=== PATIENT | female | born 1945 | race Caucasian/White ===

== ENCOUNTER → 2021-05-19 | Outpatient (CLI) | payer MEDICARE, OTHER ==
[2021-05-20 04:29] LABS: HIV 2 AB Non-Reactive (Non-Reactive); HIV AB P24 Non-Reactive (Non-Reactive); HIV P24 AG Non-Reactive (Non-Reactive)
== END | disposition home or self-care (01) ==
LOC: LABWHC1 16:21
PROVIDERS: ATTEND Obstetrics & Gynecology
DX: Z11.3 Encounter for screening for infections with a predominantly sexual mode of transmission (principal)
CPT/HCPCS: 36415; 86780; 86803; 87390

== ENCOUNTER → 2022-10-27 | Outpatient (CLI) | payer MEDICARE ==
[2022-10-27 16:19] LABS: African American GFR (CKD) 90 (>60 ml/min/1.73 sqM); Blood Urea Nitrogen 23 mg/dL (7-17); Non-African American GFR(CKD) 78 (>60 ml/min/1.73 sqM)
--- NOTE | 2022-10-29 08:35 | CT ---
EXAMINATION TYPE: CT abdomen w con DATE OF EXAM: 10/27/2022 COMPARISON: None HISTORY: RENAL CYST CT DLP: 1893.0 mGycm CONTRAST: CT scan of the abdomen is performed with Oral Contrast and with IV Contrast, patient injected with 10 0 mL of Isovue 300. FINDINGS: LUNG BASES-: No visible nodule. No infiltrate. LIVER/GB: The gallbladder surgically absent No space occupying hepatic lesion. Biliary tree is of nor mal caliber. PANCREAS: No inflammation. No distinct mass. SPLEEN: No splenic enlargement. No lesion seen. ADRENALS: No nodule. No thickening. KIDNEYS/BLADDER: No hydronephrosis. No nephrolithiasis. No distinct solid renal mass. Parapelvic renal cysts are noted bilaterally which are difficult to measure. The largest cyst on the left measur es approximately 2.5 cm and on the right approximately 1 cm. BOWEL: The bowel loops as visualized appear to be of normal caliber. No inflammatory process is seen within the [id number]. LYMPH NODES: No greater than 1cm abdominal or pelvic lymph nodes are appreciated. AORTA: No significant abnormality. OSSEOUS STRUCTURES: No significant abnormality is seen. OTHER: No significant additional abnormality is seen. IMPRESSION: 1. Renal parapelvic cysts.
== END | disposition home or self-care (01) ==
LOC: RADCTMAIN 15:28
PROVIDERS: ATTEND Urology
DX: N28.1 Cyst of kidney, acquired (principal)
CPT/HCPCS: 82565; 84520; 74160; 36415; Q9967

== ENCOUNTER → 2023-04-08 | Outpatient (CLI) | payer MEDICARE ==
--- NOTE | 2023-04-08 14:48 | US ---
EXAMINATION TYPE: US pelvic complete DATE OF EXAM: 04/08/2023 COMPARISON: NONE CLINICAL INDICATION: Female, 77 years old with history of N95.0 post menopausal bleeding; 2 episodes of blood in urine/ post-zara bleeding in August, september have coincided with UTI TECHNIQUE: Transabdominal (TA). Transabdominal sonographic images of the pelvis were acquired. Date of LMP: 2016? unsure EXAM MEASUREMENTS: Uterus: 7.5 x 2.3 x 3.1 cm Endometrial Stripe: 0.5 cm Right Ovary: 2.0x1.3x2.0 cm Left Ovary: 2.0x1.3x1.7 cm 1. Uterus: Anteverted heterogenous 2. Endometrium: upper limits, not on HRT 3. Right Ovary: wnl 4. Left Ovary: wnl 5. Bilateral Adnexa: Obscured by overlying bowel gas 6. Posterior cul-de-sac: wnl Exam slightly limited by bowel and body habitus IMPRESSION: 1. Endometrium at the upper limits of normal measuring 5 mm. 2. No evidence for acute intraluminal process.
== END | disposition home or self-care (01) ==
LOC: RADUSWWP 13:33
PROVIDERS: ATTEND Obstetrics & Gynecology
DX: N95.0 Postmenopausal bleeding (principal)
CPT/HCPCS: 76856

== ENCOUNTER → 2023-04-21 | Outpatient (CLI) | payer MEDICARE ==
--- NOTE | 2023-04-22 12:55 | MM ---
Reason for Exam: Screening (asymptomatic). Last mammogram was performed 2 year(s) and 3 month(s) ago. Patient History: Menarche at age 15. First Full-Term at age 23. Postmenopausal. Patient has history of breast feeding. Maternal grandmother had breast cancer, age 75. Risk Values: Aziza 5 year model risk: 1.6%. NCI Lifetime model risk: 3.4%. Prior Study Comparison: 12/13/2019 Bilateral Screening Mammogram, [facility]. 01/16/2021 Bilateral Screening Mammogram, [facility]. Tissue Density: The breast tissue is almost entirely fat. Findings: Analyzed By CAD. There is no suspicious group of microcalcifications or new suspicious mass. Overall Assessment: Negative, BI-RAD 1 Management: Screening Mammogram of both breasts in [address] [facility] will attempt to contact patient to return for supplemental views and ultrasound if indicated. Patient should continue monthly self-breast exams. A clinical breast exam by your physician is recommended on an annual basis. This exam should not preclude additional follow-up of suspicious palpable abnormalities. Note on Aziza scores and lifetime risk: 1. A Aziza score greater than 3% is considered moderate risk. If this is the case, consider specialist referral to assess eligibility for a risk reducing agent. 2. If overall lifetime risk for the development of breast cancer is 20% or higher, the patient may qualify for future screening with alternating mammogram and breast MRI. Electronically signed and approved by: Zelalem Lew DO
--- NOTE | 2023-04-22 14:44 | BD ---
EXAMINATION TYPE: Axial Bone Density DATE OF EXAM: 04/21/2023 CLINICAL HISTORY: 77 years old Female. ICD-10 CODE: M85.88 OTH DISRD OF BONE DENS Height: 61.2 in Weight: 293 lbs FRAX RISK QUESTIONS: Secondary Osteoporosis: 3. Menopause before 45: age 42 RISK FACTORS HISTORY OF: Family History of Osteoporosis: yes mother Active: limited Postmenopausal woman: age 42 Lost more than 2 inches in height since high school: yes 3" MEDICATIONS: Thyroid Medications: yes Which medication: Levothyroxine How Long: since 2007 Osteoporosis Medications: not now Which medication: Fosamax How Lon years Additional Medications: blood pressure meds, cholesterol meds, Additional History: thyroid cancer with radiation EXAM MEASUREMENTS: Bone mineral densitometry was performed using the RETC System. Bone mineral density as measured about the Lumbar spine is: ----- L1-L4(G/cm2): 1.291 T Score Values are as follows: ----- L1: 0.0 ----- L2: 0.2 ----- L3: 1.9 ----- L4: 1.1 ----- L1-L4: 0.9 Z Score Values are as follows: ----- L1: 0.6 ----- L2: 0.7 ----- L3: 2.4 ----- L4: 1.7 ----- L1-L4: 1.5 Bone mineral density has: Increased 11.6% since study of: 05/01/2012 Bone mineral density about the R hip (g/cm2): 0.896 Bone mineral density about the L hip (g/cm2): 0.808 T Score values are as follows: -----R Neck: -1.9 -----L Neck: -2.8 -----R Total: -0.9 -----L Total: -1.6 Z Score values are as follows: -----R Neck: -0.7 -----L Neck: -1.7 -----R Total: 0.0 -----L Total: -0.7 Bone mineral density has: Decreased -8.9% since study of: 05/01/2012 FRAX%s: The graph provided illustrates a 15.1% chance for a major osteoporotic fx and a 4.9% chance f or the hips probability for fx in 10 years time. IMPRESSION: Osteoporosis (T Score less than -2.5). There is increased fracture risk and therapy is usually indicated based on age. Re-Screen 1-2 years. NOTE: T-SCORE=SD OF THE YOUNG ADULT MEAN.
== END | disposition home or self-care (01) ==
LOC: RADMAMWWP 14:24
PROVIDERS: ATTEND Obstetrics & Gynecology
DX: Z12.31 Encounter for screening mammogram for malignant neoplasm of breast (principal); M81.0 Age-related osteoporosis without current pathological fracture; M85.851 Other specified disorders of bone density and structure, right thigh; Z80.3 Family history of malignant neoplasm of breast; Z78.0 Asymptomatic menopausal state
CPT/HCPCS: 77063; 77067; 77080